=== PATIENT | male | born 1960 | race African-American/Black ===

== ENCOUNTER 2019-03-03 01:51 | Emergency (ER) | payer MEDICAID ==
[~2019-03-03] VITALS: Ht 172.7 cm; Wt 64.0 kg
[~2019-03-03 01:51] MED LIST: ALPR2TAB2 PO; AMLO2.5T45 PO; ASA PO; ATOR80TA PO; HYDR-519 PO; NITROGLYCERIN; THEO100T15 PO
[2019-03-03 02:49] VITALS: BP 143/93
== END 2019-03-03 04:02 | disposition left against medical advice (07) ==
LOC: ER 01:51
DX: Z53.21 Procedure and treatment not carried out due to patient leaving prior to being seen by health care provider (principal)

== ENCOUNTER 2019-12-03 15:35 | Emergency (ER) | payer MEDICAID ==
[~2019-12-03] VITALS: Ht 172.7 cm; Wt 75.0 kg
[2019-12-03 16:57] LABS: BASOPHILS % 1.4 % (0.0-2.0); EOSINOPHILS % 4.1 % (0.0-5.0); HEMATOCRIT. 39.7 % (42.0-52.0); HEMOGLOBIN. 13.7 g/dL (14.0-18.0); LYMPHOCYTES % 23.8 % (20.0-50.0); MEAN CORPUSCULAR HEMOGLOBIN 29.5 pg (28.0-32.0); MEAN CORPUSCULAR VOLUME 85.5 fL (80.0-94.0); MEAN PLATELET VOLUME 8.3 fl (7.4-10.4); MONOCYTES % 12.9 % (2.0-8.0); NEUTROPHILS % 57.8 % (40.0-76.0); PLATELET 172 x1000/uL (130-400); RED BLOOD CELL COUNT 4.64 mill/uL (4.7-6.1)
[2019-12-03 16:59] LABS: CLARITY URINE CLEAR (CLEAR); COLOR URINE YELLOW (YELLOW); KETONES URINE TRACE (NEGATIVE); LEUKOCYTE ESTERASE URINE NEGATIVE (NEGATIVE); NITRITE URINE NEGATIVE (NEGATIVE); OCCULT BLOOD URINE NEGATIVE (NEGATIVE); PROTEIN URINE NEGATIVE (NEGATIVE); SPECIFIC GRAVITY URINE 1.029 (1.005-1.030)
[2019-12-03 17:02] LABS: CHLORIDE 108 mEq/L (98-107)
[2019-12-03] MEDS ORDERED: MORPHINE SULFATE 10 MG/ML CPJ IM ONE (21:30)
[2019-12-04 00:56] VITALS: BP 138/84
== END 2019-12-04 00:56 | disposition home or self-care (01) ==
LOC: ER 15:35
DX: K40.90 Unilateral inguinal hernia, without obstruction or gangrene, not specified as recurrent (principal); J45.909 Unspecified asthma, uncomplicated; E11.9 Type 2 diabetes mellitus without complications
CPT/HCPCS: 36415; 74176; 80053; 81003; 83690; 85025; 96372; 99284; 99406; J2270

== ENCOUNTER 2021-04-09 03:58 | Inpatient (IN) | payer MEDICAID ==
[2021-04-09] VITALS (9 sets, daily range): BP systolic 116–138; BP diastolic 75–92
[~2021-04-09] VITALS: Ht 172.7 cm; Wt 70.0 kg
[~2021-04-09 03:58] MED LIST changes: +ALBU18HF2 IH; -ASA PO; +ASPI-1497 PO; +BENZ-16 MT; +ELIMC TP; +FLUT1DIS3 INH; +IVER3TAB MT; -NITROGLYCERIN
[2021-04-09] MEDS ORDERED: MORPHINE SULFATE 4 MG/ML CPJ (NOT FOR IM USE) IV STA (04:44)
[2021-04-09] MEDS ORDERED: ONDANSETRON HCL 4MG/2ML INJ IV STA (04:44)
[2021-04-09] MEDS ORDERED: HEPARIN 5000 UNITS/ML VIAL IV SCH (04:45)
[2021-04-09] MEDS ORDERED: HEPARIN 25,000 UNITS PREMIX 250 ML IV PRN (04:45)
[2021-04-09] MEDS ORDERED: HEPARIN 25,000 UNITS PREMIX 250 ML IV SCH (05:00)
[2021-04-09] MEDS ORDERED: HEPARIN BOLUS PRN aPTT 30-44 IV (05:00)
[2021-04-09] MEDS ORDERED: HEPARIN BOLUS PRN aPTT <30 IV (05:00)
[2021-04-09] MEDS ORDERED: MIDAZOLAM HCL 2 MG/2 ML VIAL ONE (05:08)
[2021-04-09] MEDS ORDERED: FENTANYL CITRATE/PF 50MCG/ML 2ML VIAL ONE (05:08)
[2021-04-09] MEDS ORDERED: LIDOCAINE HCL 1% 10 MG/ML 10ML VIAL ONE (05:09)
[2021-04-09] MEDS ORDERED: IODIXANOL 320MG/ML 100 ML BOTTLE IV ONE ×2 (05:09→06:09)
[2021-04-09] MEDS ORDERED: IOHEXOL-300 100 ML BOTTLE ONE (05:09)
[2021-04-09 05:22] LABS: BASOPHILS % 0.9 % (0.0-2.0); EOSINOPHILS % 3.3 % (0.0-5.0); HEMATOCRIT. 44.5 % (42.0-52.0); HEMOGLOBIN. 14.7 g/dL (14.0-18.0); LYMPHOCYTES % 28.7 % (20.0-50.0); MEAN PLATELET VOLUME 8.2 fl (7.4-10.4); MONOCYTES % 10.8 % (2.0-8.0); NEUTROPHILS % 56.3 % (40.0-76.0); PLATELET 234 x1000/uL (130-400); RED BLOOD CELL COUNT 5.23 mill/uL (4.7-6.1); RED CELL DISTRIBUTION WIDTH 16.1 % (11.6-14.6)
[2021-04-09 05:36] LABS: CHLORIDE 107 mEq/L (98-107)
[2021-04-09 05:40] LABS: ETHANOL BLOOD < 10 mg/dL
[2021-04-09 05:44] LABS: CREATINE KINASE 348 IU/L (39-308)
[2021-04-09 05:58] LABS: PARTIAL THROMBOPLASTIN TIME 24.4 sec (23.4-31.0); PROTHROMBIN TIME 10.3 sec (9.6-11.0)
[2021-04-09] MEDS ORDERED: ACETAMINOPHEN 325MG TABLET PO PRN (07:00)
[2021-04-09] MEDS ORDERED: HYDRALAZINE 20MG/ML VIAL IV PRN (07:00)
[2021-04-09] MEDS ORDERED: ONDANSETRON HCL 4MG/2ML INJ IV PRN (07:00)
[2021-04-09] MEDS ORDERED: TRAMADOL 50MG TABLET PO PRN (07:00)
[2021-04-09] MEDS ORDERED: DEXTROSE 50% WATER 50ML SYRINGE IV PRN (07:00)
[2021-04-09] MEDS ORDERED: NITROGLYCERIN 0.4MG TABLET SL SL PRN (07:15)
[2021-04-09] MEDS ORDERED: ZOLPIDEM TARTRATE 5MG TABLET PO PRN (07:15)
[2021-04-09] MEDS ORDERED: IPRATROPIUM/ALBUTEROL 0.5-3(2.5)MG/3ML NEB HHN PRN (07:30)
[2021-04-09] MEDS ORDERED: SODIUM CHLORIDE 0.9% 100 ML IV NR (07:30)
[2021-04-09] MEDS ORDERED: IPRATROPIUM/ALBUTEROL 0.5-3(2.5)MG/3ML NEB HHN NR (07:45)
[2021-04-09] MEDS: INSULIN LISPRO 100 UNITS/ML SUBCUT SCH ×4 (07:50→21:00)
[2021-04-09] MEDS ORDERED: NITROGLYCERIN 50MCG/ML 10ML VIAL (CATH LAB) IV ONE (08:27)
[2021-04-09] MEDS ORDERED: HEPARIN SODIUM 1,000 UNIT/1ML VIAL IV ONE (08:27)
[2021-04-09] MEDS ORDERED: FAMOTIDINE 20MG TABLET PO SCH (09:00)
[2021-04-09] MEDS: BLOOD SUGAR DIAGNOSTIC STRIP TEST SCH ×4 (09:15→21:48)
[2021-04-09] MEDS: ASPIRIN 81MG TABLET PO SCH (09:54)
[2021-04-09] MEDS: CARVEDILOL 6.25 MG TABLET PO SCH ×2 (09:54→17:57)
[2021-04-09] MEDS: FAMOTIDINE 20MG TABLET PO SCH ×2 (09:54→21:49)
[2021-04-09] MEDS: AMLODIPINE 5MG TABLET PO SCH (09:54)
[2021-04-09] MEDS ORDERED: SODIUM CHLORIDE 0.9% 1,000 ML IV NR (11:00)
[2021-04-09 14:48] LABS: *AMPHETAMINES SCREEN URINE PRESUMTIVE POSITIVE (NEGATIVE); *BARBITURATES SCREEN URINE NEGATIVE (NEGATIVE); *BENZODIAZEPINES SCREEN URINE PRESUMTIVE POSITIVE (NEGATIVE); *COCAINE SCREEN URINE PRESUMTIVE POSITIVE (NEGATIVE); METHADONE URINE SCREEN NEGATIVE (NEGATIVE); OPIATES URINE SCREEN PRESUMTIVE POSITIVE (NEGATIVE)
[2021-04-09 14:49] LABS: CANNABINOID URINE SCREEN PRESUMTIVE POSITIVE (NEGATIVE); PHENCYCLIDINE URINE SCREEN PRESUMTIVE POSITIVE (NEGATIVE)
[2021-04-09] MEDS ORDERED: ATORVASTATIN CALCIUM 40MG TABLET PO SCH (21:00)
[2021-04-10] VITALS (10 sets, daily range): BP systolic 107–155; BP diastolic 62–89
[2021-04-10] MEDS: BLOOD SUGAR DIAGNOSTIC STRIP TEST SCH ×3 (06:21→17:30)
[2021-04-10] MEDS: INSULIN LISPRO 100 UNITS/ML SUBCUT SCH ×3 (07:20→17:20)
[2021-04-10 07:51] LABS: BASOPHILS % 0.8 % (0.0-2.0); CHLORIDE 105 mEq/L (98-107); EOSINOPHILS % 3.5 % (0.0-5.0); HEMOGLOBIN. 13.2 g/dL (14.0-18.0); LYMPHOCYTES % 40.2 % (20.0-50.0); MEAN CORPUSCULAR HEMOGLOBIN 28.3 pg (28.0-32.0); MEAN CORPUSCULAR VOLUME 85.6 fL (80.0-94.0); MEAN PLATELET VOLUME 8.1 fl (7.4-10.4); MONOCYTES % 8.2 % (2.0-8.0); NEUTROPHILS % 47.3 % (40.0-76.0); PLATELET 214 x1000/uL (130-400); RED BLOOD CELL COUNT 4.68 mill/uL (4.7-6.1); RED CELL DISTRIBUTION WIDTH 16.5 % (11.6-14.6)
[2021-04-10 07:58] LABS: PHOSPHORUS 2.5 mg/dL (2.5-4.9)
[2021-04-10] MEDS: FAMOTIDINE 20MG TABLET PO SCH (09:25)
[2021-04-10] MEDS: AMLODIPINE 5MG TABLET PO SCH (09:25)
[2021-04-10] MEDS: ASPIRIN 81MG TABLET PO SCH (09:25)
[2021-04-10] MEDS: CARVEDILOL 6.25 MG TABLET PO SCH ×2 (09:25→17:00)
== END 2021-04-10 12:53 | disposition home or self-care (01) | DRG 812 ==
LOC: ER 04:01 → 3WST 04:44 → CANBEDREQ 06:46
PROVIDERS: ADMIT Internal Medicine; ATTEND Internal Medicine
PROC: 4A023N7 Measurement of Cardiac Sampling and Pressure, Left Heart, Percutaneous Approach (ICD-10-PCS; principal; 2021-04-09)
PROC: B41F1ZZ Fluoroscopy of Right Lower Extremity Arteries using Low Osmolar Contrast (ICD-10-PCS; 2021-04-09)
PROC: B2111ZZ Fluoroscopy of Multiple Coronary Arteries using Low Osmolar Contrast (ICD-10-PCS; 2021-04-09)
PROC: 4A033BC Measurement of Arterial Pressure, Coronary, Percutaneous Approach (ICD-10-PCS; 2021-04-09)
PROC: B240ZZ3 Ultrasonography of Single Coronary Artery, Intravascular (ICD-10-PCS; 2021-04-09)
DX: T42.4X1A Poisoning by benzodiazepines, accidental (unintentional), initial encounter (principal); I21.3 ST elevation (STEMI) myocardial infarction of unspecified site; E44.1 Mild protein-calorie malnutrition; M62.82 Rhabdomyolysis; E11.9 Type 2 diabetes mellitus without complications; T40.5X1A Poisoning by cocaine, accidental (unintentional), initial encounter; T40.721A Poisoning by synthetic cannabinoids, accidental (unintentional), initial encounter; I24.9 Acute ischemic heart disease, unspecified; I10 Essential (primary) hypertension; E78.5 Hyperlipidemia, unspecified; Z20.822 Contact with and (suspected) exposure to COVID-19; E78.00 Pure hypercholesterolemia, unspecified; F17.210 Nicotine dependence, cigarettes, uncomplicated; I25.10 Atherosclerotic heart disease of native coronary artery without angina pectoris; J45.909 Unspecified asthma, uncomplicated; F14.90 Cocaine use, unspecified, uncomplicated; J44.9 Chronic obstructive pulmonary disease, unspecified; Z68.23 Body mass index [BMI] 23.0-23.9, adult; Z79.899 Other long term (current) drug therapy; I25.2 Old myocardial infarction; Z79.82 Long term (current) use of aspirin; Y92.89 Other specified places as the place of occurrence of the external cause
CPT/HCPCS: 36415; 71045; 80053; 80305; 80320; 82550; 82962; 83036; 83735; 83880; 84100; 84484; 85025; 85347; 87426; 92978; 93005; 93306; 93454; 93571; 99291; C1753; C1760; C1769; C1887; C1893; J1644; J2250; J2270; J2405; J3010; J3490; Q9967; G0480

== ENCOUNTER 2021-08-17 08:15 | Emergency (ER) | payer MEDICAID ==
[~2021-08-17] VITALS: Ht 170.2 cm; Wt 79.0 kg
[2021-08-17 08:43] LABS: BASOPHILS % 0.6 % (0.0-2.0); EOSINOPHILS % 3.1 % (0.0-5.0); HEMATOCRIT. 39.4 % (42.0-52.0); HEMOGLOBIN. 13.2 g/dL (14.0-18.0); LYMPHOCYTES % 17.6 % (20.0-50.0); MEAN CORPUSCULAR HEMOGLOBIN 28.2 pg (28.0-32.0); MEAN PLATELET VOLUME 7.6 fl (7.4-10.4); MONOCYTES % 11.3 % (2.0-8.0); NEUTROPHILS % 67.4 % (40.0-76.0); PLATELET 221 x1000/uL (130-400); RED BLOOD CELL COUNT 4.69 mill/uL (4.7-6.1); RED CELL DISTRIBUTION WIDTH 16.4 % (11.6-14.6)
[2021-08-17] MEDS ORDERED: IPRATROPIUM BROMIDE (0.02%) 0.5MG/2.5ML NEB HHN STA (08:50)
[2021-08-17] MEDS ORDERED: METHYLPREDNISOLONE SOD SUCC 125 MG/2 ML VIAL IV STA (08:50)
[2021-08-17 08:52] LABS: CHLORIDE 108 mEq/L (98-107)
[2021-08-17] MEDS ORDERED: MAGNESIUM 2 G PREMIX 50 ML IV ONE (09:00)
[2021-08-17] MEDS ORDERED: LIDOCAINE 5% PATCH TOP SCH (09:00)
[2021-08-17] MEDS: ALBUTEROL (0.083%) 2.5MG/3ML NEB HHN SCH (09:40)
[2021-08-17] MEDS ORDERED: KETOROLAC 30MG/ML VIAL IV ONE (09:45)
[2021-08-17 15:31] VITALS: BP 136/84
== END 2021-08-17 16:21 | disposition home or self-care (01) ==
LOC: ER 08:15
DX: J45.901 Unspecified asthma with (acute) exacerbation (principal); F14.10 Cocaine abuse, uncomplicated; F12.10 Cannabis abuse, uncomplicated; F17.200 Nicotine dependence, unspecified, uncomplicated; I25.2 Old myocardial infarction
CPT/HCPCS: 36415; 71045; 80053; 82962; 83880; 84484; 85025; 93005; 94640; 96365; 96375; 99285; J1885; J2930; J3475

== ENCOUNTER 2021-08-24 05:32 | Inpatient (IN) | payer MEDICAID, OTHER ==
[~2021-08-24] VITALS: Ht 172.7 cm; Wt 71.4 kg
[2021-08-24] MEDS ORDERED: MORPHINE SULFATE 4 MG/ML CPJ (NOT FOR IM USE) IV STA (05:41)
[2021-08-24 06:13] LABS: BASOPHILS % 0.6 % (0.0-2.0); EOSINOPHILS % 0.5 % (0.0-5.0); LYMPHOCYTES % 19.1 % (20.0-50.0); MEAN CORPUSCULAR HEMOGLOBIN 28.6 pg (28.0-32.0); MEAN CORPUSCULAR VOLUME 85.5 fL (80.0-94.0); MEAN PLATELET VOLUME 7.7 fl (7.4-10.4); MONOCYTES % 7.1 % (2.0-8.0); NEUTROPHILS % 72.7 % (40.0-76.0); PLATELET 231 x1000/uL (130-400); RED BLOOD CELL COUNT 4.92 mill/uL (4.7-6.1); RED CELL DISTRIBUTION WIDTH 16.6 % (11.6-14.6)
[2021-08-24 06:27] LABS: CHLORIDE 100 mEq/L (98-107)
[2021-08-24] MEDS ORDERED: MORPHINE SULFATE 4 MG/ML CPJ (NOT FOR IM USE) IV NR (10:04)
[2021-08-24] MEDS ORDERED: ACETAMINOPHEN 325MG TABLET PO PRN (12:45)
[2021-08-24] MEDS ORDERED: CLONIDINE 0.1MG TABLET PO PRN (12:45)
[2021-08-24] MEDS ORDERED: MAGNESIUM/ALUMINUM HYDROXIDE/SIMETHICONE 30ML UDC PO PRN (12:45)
[2021-08-24] MEDS ORDERED: DOCUSATE SODIUM 100MG CAPSULE PO PRN (12:45)
[2021-08-24] MEDS ORDERED: NALOXONE HCL 0.4MG/ML VIAL IV PRN (12:45)
[2021-08-24] MEDS ORDERED: ONDANSETRON HCL 4MG/2ML INJ IV PRN (12:45)
[2021-08-24] MEDS: ENOXAPARIN 40MG/0.4ML SYR SUBCUT SCH (13:49)
[2021-08-24 14:08] LABS: CANNABINOID URINE SCREEN PRESUMTIVE POSITIVE (NEGATIVE); METHADONE URINE SCREEN NEGATIVE (NEGATIVE); OPIATES URINE SCREEN PRESUMTIVE POSITIVE (NEGATIVE); PHENCYCLIDINE URINE SCREEN NEGATIVE (NEGATIVE)
[2021-08-24 14:09] LABS: *AMPHETAMINES SCREEN URINE PRESUMTIVE POSITIVE (NEGATIVE)
[2021-08-24 14:11] LABS: *BARBITURATES SCREEN URINE NEGATIVE (NEGATIVE); *COCAINE SCREEN URINE PRESUMTIVE POSITIVE (NEGATIVE)
[2021-08-24 14:12] LABS: *BENZODIAZEPINES SCREEN URINE NEGATIVE (NEGATIVE)
[2021-08-24 15:45] VITALS: BP 140/84
[2021-08-24] MEDS ORDERED: DEXTROSE 50% WATER 50ML SYRINGE IV PRN (19:30)
[2021-08-24] MEDS: MORPHINE SULFATE 2 MG/ML CPJ (NOT FOR IM USE) IV PRN (19:54)
[2021-08-24 20:00] VITALS: BP 146/86
[2021-08-24] MEDS: BLOOD SUGAR DIAGNOSTIC STRIP TEST SCH (20:42)
[2021-08-24] MEDS: INSULIN LISPRO 100 UNITS/ML SUBCUT SCH (20:42)
[2021-08-24] MEDS: GUAIFENESIN 200MG/10ML SUGAR FREE UDC PO PRN (22:34)
[2021-08-25] VITALS: BP 139/95
[2021-08-25 04:00] VITALS: BP 123/78
[2021-08-25] MEDS: MORPHINE SULFATE 2 MG/ML CPJ (NOT FOR IM USE) IV PRN ×2 (05:55→12:21)
[2021-08-25] MEDS: BLOOD SUGAR DIAGNOSTIC STRIP TEST SCH ×4 (06:34→21:03)
[2021-08-25] MEDS: INSULIN LISPRO 100 UNITS/ML SUBCUT SCH ×4 (06:34→21:00)
[2021-08-25 07:27] LABS: CHLORIDE 107 mEq/L (98-107)
[2021-08-25 07:31] LABS: BASOPHILS % 0.9 % (0.0-2.0); EOSINOPHILS % 2.4 % (0.0-5.0); HEMATOCRIT. 43.4 % (42.0-52.0); HEMOGLOBIN. 14.6 g/dL (14.0-18.0); MEAN CORPUSCULAR HEMOGLOBIN 28.5 pg (28.0-32.0); MEAN CORPUSCULAR VOLUME 84.9 fL (80.0-94.0); MEAN PLATELET VOLUME 8.2 fl (7.4-10.4); MONOCYTES % 11.2 % (2.0-8.0); NEUTROPHILS % 54.5 % (40.0-76.0); PLATELET 244 x1000/uL (130-400); RED BLOOD CELL COUNT 5.12 mill/uL (4.7-6.1); RED CELL DISTRIBUTION WIDTH 16.6 % (11.6-14.6)
[2021-08-25 07:35] LABS: HDL CHOLESTEROL 77 mg/dL (40-59)
[2021-08-25 07:39] LABS: LDL CHOLESTEROL 108 mg/dL (5-100)
[2021-08-25 08:00] VITALS: BP 152/95
[2021-08-25] MEDS: ASPIRIN 81MG EC TABLET PO SCH (10:12)
[2021-08-25] MEDS: HYDROCODONE/ACETAMINOPHEN 5/325MG TABLET PO PRN ×2 (10:12→16:56)
[2021-08-25] MEDS: AMLODIPINE 10MG TABLET PO SCH (10:12)
[2021-08-25 12:00] VITALS: BP 142/83
[2021-08-25] MEDS: ENOXAPARIN 40MG/0.4ML SYR SUBCUT SCH (13:38)
[2021-08-25 16:00] VITALS: BP 112/67
[2021-08-25 20:00] VITALS: BP 134/72
[2021-08-25] MEDS ORDERED: ATORVASTATIN CALCIUM 40MG TABLET PO SCH (21:00)
[2021-08-26] VITALS: BP 151/72
[2021-08-26 04:00] VITALS: BP 152/87
[2021-08-26] MEDS: GUAIFENESIN 200MG/10ML SUGAR FREE UDC PO PRN (04:06)
[2021-08-26] MEDS: INSULIN LISPRO 100 UNITS/ML SUBCUT SCH ×2 (06:02→12:40)
[2021-08-26] MEDS: BLOOD SUGAR DIAGNOSTIC STRIP TEST SCH ×2 (06:02→12:45)
[2021-08-26 08:00] VITALS: BP 168/96
[2021-08-26] MEDS: ASPIRIN 81MG EC TABLET PO SCH (08:53)
[2021-08-26] MEDS: AMLODIPINE 10MG TABLET PO SCH (08:53)
[2021-08-26 12:00] VITALS: BP 130/80
[2021-08-26] MEDS: ENOXAPARIN 40MG/0.4ML SYR SUBCUT SCH (12:51)
[2021-08-26] MEDS: HYDROCODONE/ACETAMINOPHEN 5/325MG TABLET PO PRN (12:51)
[2021-08-26 15:27] VITALS: BP 130/80
== END 2021-08-26 16:50 | disposition home or self-care (01) | DRG 203 ==
LOC: ER 05:32 → 8WST 09:01 → EDBEDREQ 09:04 → EDBEDREQTM 09:04
PROVIDERS: ADMIT Hospitalist; ATTEND Hospitalist
DX: M94.0 Chondrocostal junction syndrome [Tietze] (principal); Q24.5 Malformation of coronary vessels; I25.10 Atherosclerotic heart disease of native coronary artery without angina pectoris; I16.0 Hypertensive urgency; E11.9 Type 2 diabetes mellitus without complications; E78.5 Hyperlipidemia, unspecified; F14.10 Cocaine abuse, uncomplicated; F17.210 Nicotine dependence, cigarettes, uncomplicated; I10 Essential (primary) hypertension; I35.0 Nonrheumatic aortic (valve) stenosis; J44.9 Chronic obstructive pulmonary disease, unspecified; I25.2 Old myocardial infarction; Z79.82 Long term (current) use of aspirin; Z79.899 Other long term (current) drug therapy; Z79.891 Long term (current) use of opiate analgesic; Z71.6 Tobacco abuse counseling; Z71.51 Drug abuse counseling and surveillance of drug abuser
CPT/HCPCS: 36415; 71045; 80053; 80061; 80305; 82962; 83036; 83880; 84484; 85025; 93005; 93306; 99285; J1650; J1815; J2270

== ENCOUNTER 2021-10-31 23:31 | Inpatient (IN) | payer MEDICAID, OTHER ==
[~2021-10-31] VITALS: Ht 172.7 cm; Wt 69.9 kg
[2021-11-01 00:30] LABS: EOSINOPHILS % 3.4 % (0.0-5.0); HEMATOCRIT. 41.2 % (42.0-52.0); HEMOGLOBIN. 13.5 g/dL (14.0-18.0); LYMPHOCYTES % 37.6 % (20.0-50.0); MEAN CORPUSCULAR HEMOGLOBIN 28.1 pg (28.0-32.0); MEAN CORPUSCULAR VOLUME 85.8 fL (80.0-94.0); MEAN PLATELET VOLUME 8.3 fl (7.4-10.4); MONOCYTES % 11.6 % (2.0-8.0); NEUTROPHILS % 46.4 % (40.0-76.0); PLATELET 193 x1000/uL (130-400); RED CELL DISTRIBUTION WIDTH 16.8 % (11.6-14.6)
[2021-11-01 00:41] LABS: CHLORIDE 113 mEq/L (98-107)
[2021-11-01 04:15] LABS: *AMPHETAMINES SCREEN URINE PRESUMTIVE POSITIVE (NEGATIVE); *BARBITURATES SCREEN URINE NEGATIVE (NEGATIVE); *BENZODIAZEPINES SCREEN URINE NEGATIVE (NEGATIVE); *COCAINE SCREEN URINE PRESUMTIVE POSITIVE (NEGATIVE); CANNABINOID URINE SCREEN NEGATIVE (NEGATIVE); METHADONE URINE SCREEN NEGATIVE (NEGATIVE); OPIATES URINE SCREEN NEGATIVE (NEGATIVE); PHENCYCLIDINE URINE SCREEN NEGATIVE (NEGATIVE)
[2021-11-01] MEDS: NITROGLYCERIN 0.4MG TABLET SL SL PRN ×2 (05:56→05:57)
[2021-11-01] MEDS ORDERED: MAGNESIUM/ALUMINUM HYDROXIDE/SIMETHICONE 30ML UDC PO PRN (06:45)
[2021-11-01] MEDS ORDERED: ONDANSETRON HCL 4MG/2ML INJ IV PRN (06:45)
[2021-11-01] MEDS ORDERED: NALOXONE HCL 0.4MG/ML VIAL IV PRN (06:45)
[2021-11-01] MEDS: HYDROCODONE/ACETAMINOPHEN 5/325MG TABLET PO PRN ×3 (07:21→22:04)
[2021-11-01] MEDS: ASPIRIN 81MG EC TABLET PO SCH (08:00)
[2021-11-01 08:44] LABS: CHLORIDE 112 mEq/L (98-107)
[2021-11-01 09:15] VITALS: BP 144/91
[2021-11-01] MEDS ORDERED: METF500S7 PO (10:54)
[2021-11-01] MEDS: ENOXAPARIN 40MG/0.4ML SYR SUBCUT SCH (10:59)
[2021-11-01 12:00] VITALS: BP 146/98
[2021-11-01 16:00] VITALS: BP 127/86
[2021-11-01] MEDS: AMLODIPINE 10MG TABLET PO SCH (17:00)
[2021-11-01 20:00] VITALS: BP 127/85
[2021-11-01 23:42] LABS: BASOPHILS % 0.6 % (0.0-2.0); EOSINOPHILS % 4.6 % (0.0-5.0); HEMOGLOBIN. 13.9 g/dL (14.0-18.0); LYMPHOCYTES % 51.1 % (20.0-50.0); MEAN CORPUSCULAR HEMOGLOBIN 28.4 pg (28.0-32.0); MEAN CORPUSCULAR VOLUME 85.7 fL (80.0-94.0); MEAN PLATELET VOLUME 8.1 fl (7.4-10.4); MONOCYTES % 8.5 % (2.0-8.0); NEUTROPHILS % 35.2 % (40.0-76.0); PLATELET 181 x1000/uL (130-400); RED CELL DISTRIBUTION WIDTH 16.4 % (11.6-14.6)
[2021-11-02] VITALS: BP 121/77
[2021-11-02 00:08] LABS: CHLORIDE 109 mEq/L (98-107)
[2021-11-02 00:18] LABS: CREATINE KINASE 262 IU/L (39-308); CREATINE KINASE MB FRACTION 3.9 ng/mL (0.5-3.6); HDL CHOLESTEROL 51 mg/dL (40-59); LDL CHOLESTEROL 92 mg/dL (5-100)
[2021-11-02 04:00] VITALS: BP 120/72
[2021-11-02 06:33] LABS: BASOPHILS % 0.8 % (0.0-2.0); HEMATOCRIT. 42.2 % (42.0-52.0); HEMOGLOBIN. 14.1 g/dL (14.0-18.0); LYMPHOCYTES % 54.3 % (20.0-50.0); MEAN CORPUSCULAR HEMOGLOBIN 28.4 pg (28.0-32.0); MEAN CORPUSCULAR VOLUME 85.5 fL (80.0-94.0); MEAN PLATELET VOLUME 8.6 fl (7.4-10.4); MONOCYTES % 9.7 % (2.0-8.0); NEUTROPHILS % 30.2 % (40.0-76.0); PLATELET 179 x1000/uL (130-400); RED BLOOD CELL COUNT 4.94 mill/uL (4.7-6.1); RED CELL DISTRIBUTION WIDTH 16.4 % (11.6-14.6)
[2021-11-02 07:26] LABS: HDL CHOLESTEROL 54 mg/dL (40-59); LDL CHOLESTEROL 102 mg/dL (5-100)
[2021-11-02 08:00] VITALS: BP 130/75
[2021-11-02] MEDS ORDERED: AMLO10TA80 PO (08:16)
[2021-11-02] MEDS ORDERED: ASPI-1406 PO (08:16)
[2021-11-02] MEDS: ASPIRIN 81MG EC TABLET PO SCH (08:45)
[2021-11-02] MEDS: ENOXAPARIN 40MG/0.4ML SYR SUBCUT SCH (08:46)
[2021-11-02] MEDS: MORPHINE SULFATE 2 MG/ML CPJ (NOT FOR IM USE) IV PRN ×2 (08:46→20:49)
[2021-11-02] MEDS: AMLODIPINE 10MG TABLET PO SCH (08:46)
[2021-11-02 09:34] LABS: CHLORIDE 108 mEq/L (98-107)
[2021-11-02 12:00] VITALS: BP 132/82
[2021-11-02 16:00] VITALS: BP 143/77
[2021-11-02 20:00] VITALS: BP 127/79
[2021-11-03] VITALS: BP 117/66
[2021-11-03 04:00] VITALS: BP 136/80
[2021-11-03 08:00] VITALS: BP 143/98
[2021-11-03] MEDS: ASPIRIN 81MG EC TABLET PO SCH (08:35)
[2021-11-03] MEDS: AMLODIPINE 10MG TABLET PO SCH (08:35)
[2021-11-03] MEDS: MORPHINE SULFATE 2 MG/ML CPJ (NOT FOR IM USE) IV PRN (08:36)
[2021-11-03] MEDS: ENOXAPARIN 40MG/0.4ML SYR SUBCUT SCH (08:36)
[2021-11-03 12:00] VITALS: BP 112/15
[2021-11-03 14:36] VITALS: BP 112/75
[2021-11-03 16:00] VITALS: BP 114/70
== END 2021-11-03 18:00 | disposition home or self-care (01) | DRG 243 ==
LOC: ER 23:58 → MICUSO 11-01 02:35 → 7WST 11-01 09:11
PROVIDERS: ADMIT Family Medicine; ATTEND Family Medicine
DX: K21.9 Gastro-esophageal reflux disease without esophagitis (principal); E11.9 Type 2 diabetes mellitus without complications; I25.10 Atherosclerotic heart disease of native coronary artery without angina pectoris; E78.5 Hyperlipidemia, unspecified; I35.0 Nonrheumatic aortic (valve) stenosis; I10 Essential (primary) hypertension; J44.9 Chronic obstructive pulmonary disease, unspecified; F14.10 Cocaine abuse, uncomplicated; F20.9 Schizophrenia, unspecified; F17.210 Nicotine dependence, cigarettes, uncomplicated; Z60.2 Problems related to living alone; Z79.82 Long term (current) use of aspirin; Z79.899 Other long term (current) drug therapy; I25.2 Old myocardial infarction; Z71.51 Drug abuse counseling and surveillance of drug abuser; Z71.6 Tobacco abuse counseling; E87.5 Hyperkalemia
CPT/HCPCS: 36415; 71045; 80048; 80053; 80061; 80305; 82550; 82553; 82962; 83880; 84484; 85025; 93005; 97162; 97166; 97535; 99285; J1650; J2270

== ENCOUNTER 2022-07-24 09:17 | Emergency (ER) | payer OTHER ==
[~2022-07-24] VITALS: Ht 177.8 cm; Wt 80.0 kg
[~2022-07-24 09:17] MED LIST changes: +AMLO10TA80 PO; +ASPI-1406 PO; -ASPI-1497 PO; +METF500S9 PO
[2022-07-24 12:33] LABS: BASOPHILS % 0.9 % (0.0-2.0); HEMATOCRIT. 41.1 % (42.0-52.0); HEMOGLOBIN. 13.7 g/dL (14.0-18.0); LYMPHOCYTES % 34.6 % (20.0-50.0); MEAN CORPUSCULAR HEMOGLOBIN 27.9 pg (28.0-32.0); MEAN CORPUSCULAR VOLUME 83.7 fL (80.0-94.0); MEAN PLATELET VOLUME 7.8 fl (7.4-10.4); MONOCYTES % 12.2 % (2.0-8.0); NEUTROPHILS % 48.3 % (40.0-76.0); PLATELET 214 x1000/uL (130-400); RED BLOOD CELL COUNT 4.91 mill/uL (4.7-6.1); RED CELL DISTRIBUTION WIDTH 17.5 % (11.6-14.6)
[2022-07-24 12:42] LABS: CHLORIDE 109 mEq/L (98-107)
[2022-07-24 12:55] LABS: ETHANOL BLOOD < 10 mg/dL
[2022-07-24 13:15] LABS: *AMPHETAMINES SCREEN URINE NEGATIVE (NEGATIVE); *BARBITURATES SCREEN URINE NEGATIVE (NEGATIVE); *BENZODIAZEPINES SCREEN URINE NEGATIVE (NEGATIVE); *COCAINE SCREEN URINE PRESUMTIVE POSITIVE (NEGATIVE); CANNABINOID URINE SCREEN NEGATIVE (NEGATIVE); METHADONE URINE SCREEN NEGATIVE (NEGATIVE); OPIATES URINE SCREEN NEGATIVE (NEGATIVE); PHENCYCLIDINE URINE SCREEN NEGATIVE (NEGATIVE)
[2022-07-24] MEDS ORDERED: ACETAMINOPHEN 325MG TABLET PO ONE (20:00)
[2022-07-26] MEDS ORDERED: ACETAMINOPHEN 325MG TABLET PO ONE (05:30)
[2022-07-26 06:36] VITALS: BP 130/85
== END 2022-07-26 11:14 | disposition home or self-care (01) ==
LOC: ER 09:31 → CANBEDREQ 07-26 18:01
DX: R07.89 Other chest pain (principal); I49.8 Other specified cardiac arrhythmias; Z59.00 Homelessness unspecified; Z99.3 Dependence on wheelchair; Z96.643 Presence of artificial hip joint, bilateral
CPT/HCPCS: 36415; 71045; 80053; 80305; 80320; 83880; 84484; 85025; 93005; 99285; Z7610; G0480